=== PATIENT | male | born 1975 | race Caucasian/White ===

== ENCOUNTER 2021-04-06 23:05 | Emergency (ER) | payer OTHER ==
[2021-04-06 23:58] VITALS: BP 97/62; PULSE 78; TEMP 97.6; BMI 20.3
== END 2021-04-07 02:06 | disposition home or self-care (01) ==
LOC: JER 23:05
DX: M79.671 Pain in right foot (principal); M79.672 Pain in left foot; Z76.5 Malingerer [conscious simulation]
CPT/HCPCS: 99281-25

== ENCOUNTER 2021-04-10 01:00 | Emergency (ER) | payer OTHER ==
[2021-04-10 01:38] VITALS: TEMP 97.9; BMI 18.0
[2021-04-10] MEDS ORDERED: ACETAMINOPHEN 325 MG TABLET (FP) PO ONE (03:33)
[2021-04-10] MEDS ORDERED: ACETAMINOPHEN 325 MG TABLET (FP) ONE (03:52)
[2021-04-10 06:12] VITALS: BP 131/81; PULSE 79
== END 2021-04-10 06:57 | disposition home or self-care (01) ==
LOC: JER 01:00
DX: M79.672 Pain in left foot (principal); M79.671 Pain in right foot
CPT/HCPCS: 99283-25

== ENCOUNTER 2021-04-11 23:47 | Emergency (ER) | payer OTHER ==
[2021-04-12 00:06] VITALS: BP 146/71; PULSE 88; TEMP 97.1; BMI 17.9
[2021-04-12] MEDS ORDERED: BACITRACIN 0.9 GM PACKET ONE (05:24)
== END 2021-04-12 05:50 | disposition home or self-care (01) ==
LOC: JER 23:47
DX: S90.821A Blister (nonthermal), right foot, initial encounter (principal); S90.822A Blister (nonthermal), left foot, initial encounter; X50.3XXA Overexertion from repetitive movements, initial encounter
CPT/HCPCS: 99283-25

== ENCOUNTER 2021-04-27 21:45 | Emergency (ER) | payer OTHER ==
[2021-04-27 22:17] VITALS: BP 112/60; PULSE 74; TEMP 98.5; BMI 18.0
[2021-04-28] MEDS ORDERED: IBUPROFEN 400 MG TABLET (FP) PO ONE ×2 (00:22→00:25)
== END 2021-04-28 01:35 | disposition home or self-care (01) ==
LOC: JERFT 21:45
DX: M79.641 Pain in right hand (principal)
CPT/HCPCS: 73130-TC-RT-FY; 99283-25

== ENCOUNTER 2021-05-23 03:33 | Emergency (ER) | payer OTHER ==
[2021-05-23 03:53] VITALS: BP 128/83; PULSE 79; TEMP 98.4; BMI 20.3
[2021-05-23] MEDS ORDERED: ACETAMINOPHEN 325 MG TABLET (FP) PO ONE (04:20)
[2021-05-23] MEDS ORDERED: ACETAMINOPHEN 500 MG TABLET (FP) PO ONE (04:27)
[2021-05-23] MEDS ORDERED: ACETAMINOPHEN 325 MG TABLET (FP) ONE (04:30)
== END 2021-05-23 06:36 | disposition left against medical advice (07) ==
LOC: JER 03:33
DX: R07.9 Chest pain, unspecified (principal)
CPT/HCPCS: 93005; 93010; 99285-25

== ENCOUNTER 2021-05-24 00:55 | Emergency (ER) | payer OTHER ==
[2021-05-24 01:05] VITALS: BMI 20.3
[2021-05-24] MEDS ORDERED: ACETAMINOPHEN 325 MG TABLET (FP) PO ONE (02:08)
[2021-05-24] MEDS ORDERED: ACETAMINOPHEN 325 MG TABLET (FP) ONE (02:23)
[2021-05-24 02:45] LABS: BASO % 1.1 % (0-2.0); EOS % 4.5 % (0-4.5); HEMATOCRIT 40.2 % (35.4-49); HEMOGLOBIN 13.5 GM/dL (11.7-16.9); LYMPH % 36.2 % (8-40); MCH 31.6 pg (25.7-33.7); MCHC 33.5 g/dl (32.0-35.9); MEAN CELL VOLUME 94.3 fl (80-96); MEAN PLT VOLUME 8.4 fl (7.5-11.1); MONO % 11.1 % (3.8-10.2); NEUT % 47.1 % (42.8-82.8); PLATELET COUNT 195 10^3/uL (134-434); RBC 4.27 M/mm3 (4.00-5.60); RDW 13.8 % (11.9-15.9); WHITE BLOOD COUNT 4.9 K/mm3 (4.0-10.0)
[2021-05-24 03:19] LABS: CHLORIDE 106 mmol/L (98-107); SODIUM 139 mmol/L (136-145)
[2021-05-24 03:21] LABS: CALCIUM 9.3 mg/dL (8.5-10.1)
[2021-05-24 03:22] LABS: ANION GAP 6 MMOL/L (8-16); BLOOD UREA NITROGEN 24.6 mg/dL (7-18); CO2 27 mmol/L (21-32); GLUCOSE,RANDOM 89 mg/dL (74-106)
[2021-05-24 03:25] LABS: CREATININE 1.2 mg/dL (0.55-1.3); SGOT/AST 48 U/L (15-37); SGPT/ALT 27 U/L (13-61)
[2021-05-24 03:26] LABS: BILIRUBIN,TOTAL 0.3 mg/dL (0.2-1); TOT PROT 6.7 g/dl (6.4-8.2)
[2021-05-24 03:45] LABS: ALK PHOS 81 U/L (45-117)
[2021-05-24] MEDS ORDERED: LACTATED RINGERS SOLUTION 1000 ML INFUS.BAG IV ONE (03:50)
[2021-05-24 06:02] VITALS: BP 124/75; PULSE 73; TEMP 97.2
== END 2021-05-24 08:55 | disposition home or self-care (01) ==
LOC: JER 00:55
DX: R07.9 Chest pain, unspecified (principal); F19.10 Other psychoactive substance abuse, uncomplicated; Z59.00 Homelessness unspecified
CPT/HCPCS: 36415; 71046-TC-FY; 80053; 82550; 82553; 84484; 85025; 93005; 93010; 99285-25; C9803; U0003; U0005

== ENCOUNTER 2021-06-04 16:01 | Inpatient (IN) | payer OTHER ==
[2021-06-04 17:04] VITALS: BMI 19.4
[2021-06-04] MEDS ORDERED: MELATONIN 5 MG TABLETS PO SCH (22:00)
[2021-06-04] MEDS ORDERED: IBUPROFEN 400 MG TABLET (FP) PO PRN (22:29)
[2021-06-04] MEDS ORDERED: ACETAMINOPHEN 325 MG TABLET (FP) PO PRN (22:29)
[2021-06-04] MEDS ORDERED: guaiFENesin 200 MG/10 ML 10 ML UNIT-DOSE CUPS PO PRN (22:29)
[2021-06-04] MEDS ORDERED: MAGNESIUM HYDROX 2400MG/30ML ORAL SUSPENSION 30 ML CUP PO PRN (22:29)
[2021-06-04] MEDS ORDERED: P-EPHED 60MG/TRIPROLIDI 2.5MG TABLET PO PRN (22:29)
[2021-06-04] MEDS ORDERED: MAGNESIUM CITRATE 300 ML BOTTLE PO PRN (22:29)
[2021-06-04] MEDS ORDERED: LOPERAMIDE HCL 2 MG CAPSULE PO PRN (22:29)
[2021-06-04] MEDS ORDERED: ALBUTEROL SO4 HFA INHALER IH PRN (23:34)
[2021-06-05] MEDS: MAG HYDROX/AL HYDROX/SIMETH 30 ML UNIT-DOSE CUP PO PRN (00:41)
[2021-06-05] MEDS ORDERED: hydrOXYzine PAMOATE 25 MG CAPSULE (FP) PO PRN (09:05)
[2021-06-05] MEDS: PRENATAL VITAMINS W/ FOLIC ACID TABLET (FP) PO SCH (09:46)
[2021-06-05 10:36] LABS: HEMATOCRIT 38.1 % (35.4-49); HEMOGLOBIN 12.7 GM/dL (11.7-16.9); MCHC 33.4 g/dl (32.0-35.9); MEAN CELL VOLUME 95.8 fl (80-96); MEAN PLT VOLUME 7.9 fl (7.5-11.1); PLATELET COUNT 284 10^3/uL (134-434); RBC 3.98 M/mm3 (4.00-5.60); RDW 14.5 % (11.9-15.9); WHITE BLOOD COUNT 5.5 K/mm3 (4.0-10.0)
[2021-06-05 10:39] LABS: PH,URINE 8.5 (5.0-8.0); URINE APPEARANCE CLEAR; URINE BILIRUBIN NEGATIVE (NEGATIVE); URINE COLOR YELLOW; URINE GLUCOSE (UA) NEGATIVE (NEGATIVE); URINE KETONE NEGATIVE (NEGATIVE); URINE LEUK ESTERASE NEGATIVE (NEGATIVE); URINE NITRITE NEGATIVE (NEGATIVE); URINE PROTEIN NEGATIVE (NEGATIVE); URINE UROBILINOGEN 0.2 mg/dL (0.2-1.0)
[2021-06-05 10:47] LABS: CALCIUM 8.3 mg/dL (8.5-10.1)
[2021-06-05 10:48] LABS: ALBUMIN 3.5 g/dl (3.4-5.0)
[2021-06-05 10:52] LABS: BILIRUBIN,TOTAL 0.2 mg/dL (0.2-1)
[2021-06-05 10:53] LABS: TOT PROT 6.4 g/dl (6.4-8.2)
[2021-06-05] MEDS: QUEtiapine FUMARATE 50 MG TABLET PO SCH (21:23)
[2021-06-05] MEDS: THIAMINE HCL 100 MG TABLET (FP) PO SCH (21:23)
[2021-06-06] MEDS: PRENATAL VITAMINS W/ FOLIC ACID TABLET (FP) PO SCH (09:19)
[2021-06-06] MEDS: MAG HYDROX/AL HYDROX/SIMETH 30 ML UNIT-DOSE CUP PO PRN (17:10)
[2021-06-06] MEDS: THIAMINE HCL 100 MG TABLET (FP) PO SCH (21:04)
[2021-06-06] MEDS: QUEtiapine FUMARATE 50 MG TABLET PO SCH (21:04)
[2021-06-07 07:29] VITALS: BP 100/65; PULSE 76; TEMP 98.7
[2021-06-07] MEDS: PRENATAL VITAMINS W/ FOLIC ACID TABLET (FP) PO SCH (10:00)
[2021-06-07] MEDS: QUEtiapine FUMARATE 50 MG TABLET PO SCH (21:18)
[2021-06-07] MEDS: THIAMINE HCL 100 MG TABLET (FP) PO SCH (21:18)
== END 2021-06-08 07:54 | disposition home or self-care (01) | DRG 776 ==
LOC: YASAS 16:01 → Y3W 21:11
PROVIDERS: ADMIT Allergy & Immunology; ATTEND Allergy & Immunology
PROC: HZ2ZZZZ Detoxification Services for Substance Abuse Treatment (ICD-10-PCS; principal; 2021-06-04)
DX: F16.20 Hallucinogen dependence, uncomplicated (principal); F12.20 Cannabis dependence, uncomplicated; F17.210 Nicotine dependence, cigarettes, uncomplicated; F33.1 Major depressive disorder, recurrent, moderate; F19.282 Other psychoactive substance dependence with psychoactive substance-induced sleep disorder; F19.280 Other psychoactive substance dependence with psychoactive substance-induced anxiety disorder; F19.24 Other psychoactive substance dependence with psychoactive substance-induced mood disorder; F32.A Depression, unspecified; F90.9 Attention-deficit hyperactivity disorder, unspecified type; M17.12 Unilateral primary osteoarthritis, left knee; J45.909 Unspecified asthma, uncomplicated; Z88.0 Allergy status to penicillin; Z91.013 Allergy to seafood; Z91.02 Food additives allergy status; Z56.0 Unemployment, unspecified
CPT/HCPCS: 36415; 80053; 81003; 85027; 86780; C9803; U0003; U0005

== ENCOUNTER 2021-07-27 22:54 | Inpatient (IN) | payer OTHER ==
[2021-07-28 02:23] VITALS: BMI 19.3
[2021-07-28] MEDS ORDERED: BISMUTH SUBSALICYLATE 524 MG/30 ML PO PRN (03:02)
[2021-07-28] MEDS ORDERED: P-EPHED 60MG/TRIPROLIDI 2.5MG TABLET PO PRN (03:02)
[2021-07-28] MEDS ORDERED: MAG HYDROX/AL HYDROX/SIMETH 30 ML UNIT-DOSE CUP PO PRN (03:02)
[2021-07-28] MEDS ORDERED: ONDANSETRON *ODT* 4 MG TABLET SL PRN (03:02)
[2021-07-28] MEDS ORDERED: MAGNESIUM HYDROX 2400MG/30ML ORAL SUSPENSION 30 ML CUP PO PRN (03:02)
[2021-07-28] MEDS ORDERED: ACETAMINOPHEN 325 MG TABLET (FP) PO PRN ×2 (03:02)
[2021-07-28] MEDS ORDERED: NICOTINE POLACRILEX 2 MG GUM BUC PRN (03:02)
[2021-07-28] MEDS ORDERED: guaiFENesin 200 MG/10 ML 10 ML UNIT-DOSE CUPS PO PRN (03:02)
[2021-07-28] MEDS ORDERED: LOPERAMIDE HCL 2 MG CAPSULE PO PRN (03:02)
[2021-07-28] MEDS ORDERED: IBUPROFEN 400 MG TABLET (FP) PO PRN (03:02)
[2021-07-28] MEDS ORDERED: MAGNESIUM CITRATE 300 ML BOTTLE PO PRN (03:02)
[2021-07-28] MEDS ORDERED: MENTHOL/PHENOL 1 EACH UD MM PRN (03:02)
[2021-07-28] MEDS ORDERED: DICYCLOMINE HCL 10 MG CAPSULE PO PRN (03:02)
[2021-07-28] MEDS ORDERED: chlordiazePOXIDE HCL 25 MG CAPSULE PO PRN (09:06)
[2021-07-28] MEDS: chlordiazePOXIDE HCL 25 MG CAPSULE PO SCH ×2 (11:23→20:38)
[2021-07-28] MEDS: PRENATAL VITAMINS W/ FOLIC ACID TABLET (FP) PO SCH (11:25)
[2021-07-28] MEDS: NICOTINE 14 MG/24 HOURS TOPICAL PATCH TD SCH (11:25)
[2021-07-28 14:49] LABS: HEMATOCRIT 41.3 % (35.4-49); HEMOGLOBIN 14.3 GM/dL (11.7-16.9); MCH 32.5 pg (25.7-33.7); MCHC 34.6 g/dl (32.0-35.9); MEAN CELL VOLUME 94.2 fl (80-96); MEAN PLT VOLUME 8.4 fl (7.5-11.1); PLATELET COUNT 177 10^3/uL (134-434); RBC 4.39 M/mm3 (4.00-5.60); RDW 13.3 % (11.9-15.9); WHITE BLOOD COUNT 4.3 K/mm3 (4.0-10.0)
[2021-07-28 14:52] LABS: CALCIUM 8.8 mg/dL (8.5-10.1)
[2021-07-28 14:53] LABS: ALBUMIN 3.8 g/dl (3.4-5.0); BLOOD UREA NITROGEN 16.2 mg/dL (7-18)
[2021-07-28 14:57] LABS: TOT PROT 6.6 g/dl (6.4-8.2)
[2021-07-28 14:58] LABS: BILIRUBIN,TOTAL 0.3 mg/dL (0.2-1)
[2021-07-29] MEDS: MELATONIN 5 MG TABLETS PO SCH ×2 (00:04→22:38)
[2021-07-29] MEDS: THIAMINE HCL 100 MG TABLET (FP) PO SCH ×2 (00:04→22:36)
[2021-07-29] MEDS: QUEtiapine FUMARATE 50 MG TABLET PO SCH ×2 (00:04→22:36)
[2021-07-29] MEDS: chlordiazePOXIDE HCL 25 MG CAPSULE PO SCH ×4 (00:05→18:04)
[2021-07-29] MEDS: NICOTINE 14 MG/24 HOURS TOPICAL PATCH TD SCH (10:41)
[2021-07-29] MEDS: PRENATAL VITAMINS W/ FOLIC ACID TABLET (FP) PO SCH (10:41)
[2021-07-29] MEDS: hydrOXYzine PAMOATE 25 MG CAPSULE (FP) PO PRN ×2 (14:58→18:04)
[2021-07-30] MEDS: chlordiazePOXIDE HCL 25 MG CAPSULE PO SCH ×5 (00:05→22:27)
[2021-07-30] MEDS: NICOTINE 14 MG/24 HOURS TOPICAL PATCH TD SCH (11:14)
[2021-07-30] MEDS: METHOCARBAMOL 500 MG TABLET PO PRN ×2 (11:15→13:01)
[2021-07-30] MEDS: hydrOXYzine PAMOATE 25 MG CAPSULE (FP) PO PRN ×2 (11:15→15:46)
[2021-07-30] MEDS: PRENATAL VITAMINS W/ FOLIC ACID TABLET (FP) PO SCH (11:17)
[2021-07-30] MEDS: MELATONIN 5 MG TABLETS PO SCH (22:27)
[2021-07-30] MEDS: QUEtiapine FUMARATE 50 MG TABLET PO SCH (22:27)
[2021-07-30] MEDS: THIAMINE HCL 100 MG TABLET (FP) PO SCH (23:27)
[2021-07-31] MEDS ORDERED: chlordiazePOXIDE HCL 10 MG CAPSULE PO PRN
[2021-07-31 00:07] LABS: SARS-CoV-2 NAA Not Detected (Not Detected)
[2021-07-31] MEDS ORDERED: chlordiazePOXIDE HCL 10 MG CAPSULE PO SCH (05:00)
[2021-07-31 09:50] VITALS: BP 121/83; PULSE 94; TEMP 97.7
[2021-08-01] MEDS ORDERED: chlordiazePOXIDE HCL 10 MG CAPSULE PO SCH (05:00)
[2021-08-02] MEDS ORDERED: chlordiazePOXIDE HCL 10 MG CAPSULE PO ONE (05:00)
== END 2021-07-31 08:50 | disposition left against medical advice (07) | DRG 770 ==
LOC: YASAS 22:54 → UNDOADMIN 23:50 → Y6N 23:50
PROVIDERS: ADMIT Allergy & Immunology; ATTEND Allergy & Immunology
PROC: HZ2ZZZZ Detoxification Services for Substance Abuse Treatment (ICD-10-PCS; principal; 2021-07-27)
DX: F10.230 Alcohol dependence with withdrawal, uncomplicated (principal); F12.20 Cannabis dependence, uncomplicated; F17.210 Nicotine dependence, cigarettes, uncomplicated; F33.1 Major depressive disorder, recurrent, moderate; F19.282 Other psychoactive substance dependence with psychoactive substance-induced sleep disorder; F19.24 Other psychoactive substance dependence with psychoactive substance-induced mood disorder; J45.909 Unspecified asthma, uncomplicated; M17.12 Unilateral primary osteoarthritis, left knee; Z72.53 High risk bisexual behavior; Z91.013 Allergy to seafood; Z91.02 Food additives allergy status; Z88.0 Allergy status to penicillin; Z56.0 Unemployment, unspecified
CPT/HCPCS: 36415; 80053; 85027; 86780; 87811; C9803-CS; U0003; U0005

== ENCOUNTER 2021-08-24 23:31 | Inpatient (IN) | payer OTHER ==
[2021-08-24 23:53] VITALS: BMI 18.4
[2021-08-24] MEDS ORDERED: ONDANSETRON *ODT* 4 MG TABLET SL PRN (23:57)
[2021-08-24] MEDS ORDERED: MAG HYDROX/AL HYDROX/SIMETH 30 ML UNIT-DOSE CUP PO PRN (23:57)
[2021-08-24] MEDS ORDERED: MAGNESIUM CITRATE 300 ML BOTTLE PO PRN (23:57)
[2021-08-24] MEDS ORDERED: guaiFENesin 200 MG/10 ML 10 ML UNIT-DOSE CUPS PO PRN (23:57)
[2021-08-24] MEDS ORDERED: BISMUTH SUBSALICYLATE 524 MG/30 ML PO PRN (23:57)
[2021-08-24] MEDS ORDERED: MAGNESIUM HYDROX 2400MG/30ML ORAL SUSPENSION 30 ML CUP PO PRN (23:57)
[2021-08-24] MEDS ORDERED: LOPERAMIDE HCL 2 MG CAPSULE PO PRN (23:57)
[2021-08-24] MEDS ORDERED: BENZOCAINE/MENTHOL (CHLORASEPTIC ) LOZENGE MM PRN (23:57)
[2021-08-24] MEDS ORDERED: P-EPHED 60MG/TRIPROLIDI 2.5MG TABLET PO PRN (23:57)
[2021-08-24] MEDS ORDERED: METHOCARBAMOL 500 MG TABLET PO PRN (23:57)
[2021-08-24] MEDS ORDERED: DICYCLOMINE HCL 10 MG CAPSULE PO PRN (23:57)
[2021-08-24] MEDS ORDERED: IBUPROFEN 400 MG TABLET (FP) PO PRN (23:57)
[2021-08-24] MEDS ORDERED: ACETAMINOPHEN 325 MG TABLET (FP) PO PRN ×2 (23:57)
[2021-08-24] MEDS ORDERED: NICOTINE POLACRILEX 2 MG GUM BUC PRN (23:57)
[2021-08-25] MEDS ORDERED: diazePAM 5 MG TABLET PO PRN (09:54)
[2021-08-25] MEDS: PRENATAL VITAMINS W/ FOLIC ACID TABLET (FP) PO SCH (10:13)
[2021-08-25] MEDS: NICOTINE 14 MG/24 HOURS TOPICAL PATCH TD SCH (10:13)
[2021-08-25] MEDS: diazePAM 5 MG TABLET PO SCH ×2 (10:56→18:44)
[2021-08-25 12:46] LABS: HEMATOCRIT 39.8 % (35.4-49); HEMOGLOBIN 13.4 GM/dL (11.7-16.9); MCH 31.4 pg (25.7-33.7); MCHC 33.6 g/dl (32.0-35.9); MEAN CELL VOLUME 93.3 fl (80-96); MEAN PLT VOLUME 8.8 fl (7.5-11.1); PLATELET COUNT 293 10^3/uL (134-434); RBC 4.27 M/mm3 (4.00-5.60); RDW 12.6 % (11.9-15.9)
[2021-08-25 12:54] LABS: ALBUMIN 3.2 g/dl (3.4-5.0); BLOOD UREA NITROGEN 14.7 mg/dL (7-18)
[2021-08-25 12:56] LABS: BILIRUBIN,TOTAL 0.2 mg/dL (0.2-1); TOT PROT 6.1 g/dl (6.4-8.2)
[2021-08-25 12:57] LABS: CALCIUM 8.7 mg/dL (8.5-10.1); CREATININE 0.9 mg/dL (0.55-1.3)
[2021-08-25 14:41] LABS: PH,URINE 5.5 (5.0-8.0); URINE APPEARANCE CLEAR; URINE BILIRUBIN NEGATIVE (NEGATIVE); URINE COLOR YELLOW; URINE GLUCOSE (UA) NEGATIVE (NEGATIVE); URINE KETONE TRACE (NEGATIVE); URINE LEUK ESTERASE NEGATIVE (NEGATIVE); URINE NITRITE NEGATIVE (NEGATIVE); URINE PROTEIN NEGATIVE (NEGATIVE); URINE UROBILINOGEN 0.2 mg/dL (0.2-1.0)
[2021-08-25] MEDS: hydrOXYzine PAMOATE 25 MG CAPSULE (FP) PO PRN (18:43)
[2021-08-26] MEDS: THIAMINE HCL 100 MG TABLET (FP) PO SCH ×2 (00:07→22:18)
[2021-08-26] MEDS: diazePAM 5 MG TABLET PO SCH ×4 (00:07→22:18)
[2021-08-26] MEDS: MELATONIN 5 MG TABLETS PO SCH ×2 (00:07→22:18)
[2021-08-26] MEDS: QUEtiapine FUMARATE 50 MG TABLET PO SCH ×2 (00:07→22:18)
[2021-08-26] MEDS: PRENATAL VITAMINS W/ FOLIC ACID TABLET (FP) PO SCH (10:04)
[2021-08-26] MEDS: NICOTINE 14 MG/24 HOURS TOPICAL PATCH TD SCH (10:04)
[2021-08-26] MEDS: hydrOXYzine PAMOATE 25 MG CAPSULE (FP) PO PRN ×3 (10:05→22:18)
[2021-08-26 14:08] LABS: SARS-CoV-2 NAA Not Detected (Not Detected)
[2021-08-27] MEDS ORDERED: diazePAM 5 MG TABLET PO SCH (06:00)
[2021-08-27 06:20] VITALS: BP 101/68; PULSE 60; TEMP 97
[2021-08-27] MEDS: PRENATAL VITAMINS W/ FOLIC ACID TABLET (FP) PO SCH (09:18)
[2021-08-27] MEDS: hydrOXYzine PAMOATE 25 MG CAPSULE (FP) PO PRN (09:18)
[2021-08-27] MEDS: NICOTINE 14 MG/24 HOURS TOPICAL PATCH TD SCH (09:19)
[2021-08-28] MEDS ORDERED: diazePAM 5 MG TABLET PO ONE (06:00)
== END 2021-08-27 09:23 | disposition home or self-care (01) | DRG 775 ==
LOC: YASAS 23:31 → Y6N 08-25 01:28
PROVIDERS: ADMIT Allergy & Immunology; ATTEND Allergy & Immunology
PROC: HZ2ZZZZ Detoxification Services for Substance Abuse Treatment (ICD-10-PCS; principal; 2021-08-25)
DX: F10.230 Alcohol dependence with withdrawal, uncomplicated (principal); F12.20 Cannabis dependence, uncomplicated; F17.210 Nicotine dependence, cigarettes, uncomplicated; F19.282 Other psychoactive substance dependence with psychoactive substance-induced sleep disorder; F33.1 Major depressive disorder, recurrent, moderate; F19.24 Other psychoactive substance dependence with psychoactive substance-induced mood disorder; F90.9 Attention-deficit hyperactivity disorder, unspecified type; J45.909 Unspecified asthma, uncomplicated; K21.9 Gastro-esophageal reflux disease without esophagitis; M17.12 Unilateral primary osteoarthritis, left knee; Z88.0 Allergy status to penicillin; Z91.02 Food additives allergy status
CPT/HCPCS: 36415; 80053; 81003; 85027; 86780; C9803-CS; U0003; U0005

== ENCOUNTER 2021-09-14 21:09 | Inpatient (IN) | payer OTHER ==
[2021-09-14 21:48] VITALS: BMI 18.0
[2021-09-14] MEDS ORDERED: MAG HYDROX/AL HYDROX/SIMETH 30 ML UNIT-DOSE CUP PO PRN (21:48)
[2021-09-14] MEDS ORDERED: LOPERAMIDE HCL 2 MG CAPSULE PO PRN (21:48)
[2021-09-14] MEDS ORDERED: guaiFENesin 200 MG/10 ML 10 ML UNIT-DOSE CUPS PO PRN (21:48)
[2021-09-14] MEDS ORDERED: NICOTINE 10 MG CARTRIDGE (INHALER) IH PRN (21:48)
[2021-09-14] MEDS ORDERED: ACETAMINOPHEN 325 MG TABLET (FP) PO PRN (21:48)
[2021-09-14] MEDS ORDERED: MAGNESIUM CITRATE 300 ML BOTTLE PO PRN (21:48)
[2021-09-14] MEDS ORDERED: BENZOCAINE/MENTHOL (CHLORASEPTIC ) LOZENGE MM PRN (21:48)
[2021-09-14] MEDS ORDERED: IBUPROFEN 400 MG TABLET (FP) PO PRN (21:48)
[2021-09-14] MEDS ORDERED: P-EPHED 60MG/TRIPROLIDI 2.5MG TABLET PO PRN (21:48)
[2021-09-14] MEDS ORDERED: MAGNESIUM HYDROX 2400MG/30ML ORAL SUSPENSION 30 ML CUP PO PRN (21:48)
[2021-09-15] MEDS: THIAMINE HCL 100 MG TABLET (FP) PO SCH ×2 (05:04→21:30)
[2021-09-15] MEDS: hydrOXYzine PAMOATE 25 MG CAPSULE (FP) PO PRN ×2 (10:19→21:32)
[2021-09-15] MEDS: PRENATAL VITAMINS W/ FOLIC ACID TABLET (FP) PO SCH (10:19)
[2021-09-15] MEDS: MELATONIN 5 MG TABLETS PO PRN (21:30)
[2021-09-15] MEDS: QUEtiapine FUMARATE 25 MG TABLET PO SCH (21:31)
[2021-09-16] MEDS: PRENATAL VITAMINS W/ FOLIC ACID TABLET (FP) PO SCH (10:14)
[2021-09-16] MEDS: hydrOXYzine PAMOATE 25 MG CAPSULE (FP) PO PRN ×2 (10:22→18:25)
[2021-09-16] MEDS: THIAMINE HCL 100 MG TABLET (FP) PO SCH (23:36)
[2021-09-16] MEDS: QUEtiapine FUMARATE 25 MG TABLET PO SCH (23:36)
[2021-09-17] MEDS: PRENATAL VITAMINS W/ FOLIC ACID TABLET (FP) PO SCH (09:39)
[2021-09-17] MEDS: hydrOXYzine PAMOATE 25 MG CAPSULE (FP) PO PRN ×2 (09:39→14:48)
[2021-09-17] MEDS: QUEtiapine FUMARATE 25 MG TABLET PO SCH (21:31)
[2021-09-17] MEDS: MELATONIN 5 MG TABLETS PO PRN (21:32)
[2021-09-17] MEDS: THIAMINE HCL 100 MG TABLET (FP) PO SCH (21:32)
[2021-09-18] MEDS: PRENATAL VITAMINS W/ FOLIC ACID TABLET (FP) PO SCH (10:17)
[2021-09-18] MEDS: hydrOXYzine PAMOATE 25 MG CAPSULE (FP) PO PRN ×3 (10:18→21:42)
[2021-09-18] MEDS: MELATONIN 5 MG TABLETS PO PRN (21:42)
[2021-09-18] MEDS: QUEtiapine FUMARATE 25 MG TABLET PO SCH (21:42)
[2021-09-18] MEDS: THIAMINE HCL 100 MG TABLET (FP) PO SCH (21:42)
[2021-09-19 00:06] LABS: SARS-CoV-2 NAA Not Detected (Not Detected)
[2021-09-19] MEDS: PRENATAL VITAMINS W/ FOLIC ACID TABLET (FP) PO SCH (09:14)
[2021-09-19] MEDS: hydrOXYzine PAMOATE 25 MG CAPSULE (FP) PO PRN ×3 (14:55→21:02)
[2021-09-19] MEDS: THIAMINE HCL 100 MG TABLET (FP) PO SCH (21:01)
[2021-09-19] MEDS: MELATONIN 5 MG TABLETS PO PRN (21:02)
[2021-09-19] MEDS: QUEtiapine FUMARATE 25 MG TABLET PO SCH (21:54)
[2021-09-20] MEDS: PRENATAL VITAMINS W/ FOLIC ACID TABLET (FP) PO SCH (10:24)
[2021-09-20] MEDS: THIAMINE HCL 100 MG TABLET (FP) PO SCH (21:11)
[2021-09-20] MEDS: QUEtiapine FUMARATE 25 MG TABLET PO SCH (21:11)
[2021-09-20] MEDS: MELATONIN 5 MG TABLETS PO PRN (21:11)
[2021-09-20] MEDS: hydrOXYzine PAMOATE 25 MG CAPSULE (FP) PO PRN (21:12)
[2021-09-21 06:38] VITALS: PULSE 69
[2021-09-21] MEDS: PRENATAL VITAMINS W/ FOLIC ACID TABLET (FP) PO SCH (09:17)
[2021-09-21] MEDS: hydrOXYzine PAMOATE 25 MG CAPSULE (FP) PO PRN (19:18)
[2021-09-21] MEDS: QUEtiapine FUMARATE 25 MG TABLET PO SCH (21:24)
[2021-09-21] MEDS: THIAMINE HCL 100 MG TABLET (FP) PO SCH (21:24)
[2021-09-21] MEDS: MELATONIN 5 MG TABLETS PO PRN (21:25)
[2021-09-22 07:37] VITALS: BP 120/78; TEMP 98.1
[2021-09-22] MEDS: PRENATAL VITAMINS W/ FOLIC ACID TABLET (FP) PO SCH (09:38)
== END 2021-09-22 09:10 | disposition home or self-care (01) | DRG 772 ==
LOC: YASAS 21:09 → Y3W 21:50 → Y3E 09-18 15:22
PROVIDERS: ADMIT Allergy & Immunology; ATTEND Psychiatry & Neurology Pain Medicine
PROC: HZ42ZZZ Group Counseling for Substance Abuse Treatment, Cognitive-Behavioral (ICD-10-PCS; principal; 2021-09-14)
DX: F10.20 Alcohol dependence, uncomplicated (principal); F16.20 Hallucinogen dependence, uncomplicated; F12.20 Cannabis dependence, uncomplicated; F17.210 Nicotine dependence, cigarettes, uncomplicated; F19.24 Other psychoactive substance dependence with psychoactive substance-induced mood disorder; G47.00 Insomnia, unspecified; M17.12 Unilateral primary osteoarthritis, left knee; J45.909 Unspecified asthma, uncomplicated; Z88.0 Allergy status to penicillin; Z91.013 Allergy to seafood; Z91.02 Food additives allergy status
CPT/HCPCS: C9803-CS; U0003; U0005

== ENCOUNTER 2021-12-17 22:33 | Inpatient (IN) | payer OTHER ==
[2021-12-17 23:22] VITALS: BMI 17.2
[2021-12-18] MEDS ORDERED: MAGNESIUM CITRATE 300 ML BOTTLE PO PRN (00:27)
[2021-12-18] MEDS ORDERED: P-EPHED 60MG/TRIPROLIDI 2.5MG TABLET PO PRN (00:27)
[2021-12-18] MEDS ORDERED: NICOTINE POLACRILEX 2 MG GUM BUC PRN (00:27)
[2021-12-18] MEDS ORDERED: ACETAMINOPHEN 325 MG TABLET (FP) PO PRN (00:27)
[2021-12-18] MEDS ORDERED: MAG HYDROX/AL HYDROX/SIMETH 30 ML UNIT-DOSE CUP PO PRN (00:27)
[2021-12-18] MEDS ORDERED: LOPERAMIDE HCL 2 MG CAPSULE PO PRN (00:27)
[2021-12-18] MEDS ORDERED: guaiFENesin 200 MG/10 ML 10 ML UNIT-DOSE CUPS PO PRN (00:27)
[2021-12-18] MEDS ORDERED: MAGNESIUM HYDROX 2400MG/30ML ORAL SUSPENSION 30 ML CUP PO PRN (00:27)
[2021-12-18] MEDS ORDERED: IBUPROFEN 400 MG TABLET (FP) PO PRN (00:27)
[2021-12-18] MEDS ORDERED: MELATONIN 5 MG TABLETS PO ONE (03:45)
[2021-12-18] MEDS ORDERED: hydrOXYzine PAMOATE 25 MG CAPSULE (FP) PO ONE (03:48)
[2021-12-18 11:34] LABS: ALBUMIN 3.4 g/dl (3.4-5.0); BLOOD UREA NITROGEN 21.4 mg/dL (7-18); CALCIUM 8.4 mg/dL (8.5-10.1); HEMATOCRIT 41.4 % (35.4-49); HEMOGLOBIN 13.9 GM/dL (11.7-16.9); MCH 31.5 pg (25.7-33.7); MCHC 33.6 g/dl (32.0-35.9); MEAN CELL VOLUME 93.9 fl (80-96); MEAN PLT VOLUME 9.2 fl (7.5-11.1); PLATELET COUNT 196 10^3/uL (134-434); RBC 4.41 M/mm3 (4.00-5.60); RDW 13.5 % (11.9-15.9); WHITE BLOOD COUNT 5.6 K/mm3 (4.0-10.0)
[2021-12-18 11:37] LABS: CREATININE 0.9 mg/dL (0.55-1.3)
[2021-12-18] MEDS ORDERED: hydrOXYzine PAMOATE 25 MG CAPSULE (FP) PO PRN (11:38)
[2021-12-18 11:39] LABS: BILIRUBIN,TOTAL 0.4 mg/dL (0.2-1)
[2021-12-18] MEDS: NICOTINE 14 MG/24 HOURS TOPICAL PATCH TD SCH (11:50)
[2021-12-18] MEDS: PRENATAL VITAMINS W/ FOLIC ACID TABLET (FP) PO SCH (11:50)
[2021-12-18 12:23] LABS: PH,URINE 6.5 (5.0-8.0); URINE APPEARANCE CLEAR; URINE BILIRUBIN NEGATIVE (NEGATIVE); URINE COLOR YELLOW; URINE GLUCOSE (UA) NEGATIVE (NEGATIVE); URINE KETONE NEGATIVE (NEGATIVE); URINE LEUK ESTERASE NEGATIVE (NEGATIVE); URINE NITRITE NEGATIVE (NEGATIVE); URINE PROTEIN NEGATIVE (NEGATIVE)
[2021-12-18 12:24] LABS: SYPHILIS W/ RPR CONF NON-REACTIVE (NONREACTIVE)
[2021-12-18 13:11] LABS: HIV INTERPRETATION NEGATIVE (NEGATIVE)
[2021-12-18] MEDS: hydrOXYzine PAMOATE 25 MG CAPSULE (FP) PO PRN ×2 (16:00→21:12)
[2021-12-18] MEDS: QUEtiapine FUMARATE 50 MG TABLET PO PRN (21:12)
[2021-12-18] MEDS: THIAMINE HCL 100 MG TABLET (FP) PO SCH (21:13)
[2021-12-18] MEDS ORDERED: traZODone HCL 50 MG TABLET (FP) PO SCH (22:00)
[2021-12-19] MEDS: PRENATAL VITAMINS W/ FOLIC ACID TABLET (FP) PO SCH (09:17)
[2021-12-19] MEDS: hydrOXYzine PAMOATE 25 MG CAPSULE (FP) PO PRN ×3 (09:18→19:08)
[2021-12-19] MEDS: NICOTINE 14 MG/24 HOURS TOPICAL PATCH TD SCH (09:18)
[2021-12-19] MEDS ORDERED: ONDANSETRON 8 MG TABLET (FP) PO PRN (10:29)
[2021-12-19] MEDS ORDERED: METHOCARBAMOL 500 MG TABLET PO PRN (10:29)
[2021-12-19] MEDS: QUEtiapine FUMARATE 50 MG TABLET PO PRN (21:13)
[2021-12-19] MEDS: THIAMINE HCL 100 MG TABLET (FP) PO SCH (21:13)
[2021-12-20 06:37] VITALS: BP 104/77; PULSE 82; RESP 17; TEMP 97.1
[2021-12-20] MEDS: NICOTINE 14 MG/24 HOURS TOPICAL PATCH TD SCH (10:36)
[2021-12-20] MEDS: PRENATAL VITAMINS W/ FOLIC ACID TABLET (FP) PO SCH (10:36)
== END 2021-12-20 13:09 | disposition left against medical advice (07) | DRG 770 ==
LOC: YASAS 22:33 → Y3E 12-18 02:58 → UNDODISIN 12-20 09:33
PROVIDERS: ADMIT Allergy & Immunology; ATTEND Allergy & Immunology
PROC: HZ42ZZZ Group Counseling for Substance Abuse Treatment, Cognitive-Behavioral (ICD-10-PCS; principal; 2021-12-18)
DX: F16.20 Hallucinogen dependence, uncomplicated (principal); F12.20 Cannabis dependence, uncomplicated; F17.210 Nicotine dependence, cigarettes, uncomplicated; F19.280 Other psychoactive substance dependence with psychoactive substance-induced anxiety disorder; F19.282 Other psychoactive substance dependence with psychoactive substance-induced sleep disorder; F19.24 Other psychoactive substance dependence with psychoactive substance-induced mood disorder; F32.A Depression, unspecified; J45.909 Unspecified asthma, uncomplicated; K21.9 Gastro-esophageal reflux disease without esophagitis; M17.12 Unilateral primary osteoarthritis, left knee; Z88.0 Allergy status to penicillin; Z91.013 Allergy to seafood; Z91.02 Food additives allergy status
CPT/HCPCS: 36415; 80053; 81003; 85027; 86780; 86803; 87389; 87811; C9803-CS; U0003; U0005

== ENCOUNTER 2022-01-11 02:17 | Emergency (ER) | payer OTHER ==
[2022-01-11 02:24] VITALS: RESP 18; BMI 17.2
[2022-01-11 04:21] LABS: VENOUS BASE EXCESS -2.5 mmol/L (-2-2); VENOUS O2 SATURATION 98.9 % (70-80); VENOUS PCO2 36.7 mmHg (38-52); VENOUS PH 7.393 (7.310-7.410)
[2022-01-11 04:25] LABS: BASO % 1.9 % (0-2.0); EOS % 5.3 % (0-4.5); HEMATOCRIT 43.5 % (35.4-49); HEMOGLOBIN 15.1 GM/dL (11.7-16.9); LYMPH % 31.1 % (8-40); MCH 32.7 pg (25.7-33.7); MCHC 34.6 g/dl (32.0-35.9); MEAN CELL VOLUME 94.4 fl (80-96); MEAN PLT VOLUME 7.9 fl (7.5-11.1); NEUT % 53.7 % (42.8-82.8); PLATELET COUNT 223 10^3/uL (134-434); RBC 4.61 M/mm3 (4.00-5.60); RDW 13.1 % (11.9-15.9); WHITE BLOOD COUNT 5.4 K/mm3 (4.0-10.0)
[2022-01-11 04:43] LABS: CHLORIDE 109 mmol/L (98-107); SODIUM 140 mmol/L (136-145)
[2022-01-11 04:45] LABS: ALBUMIN 3.6 g/dl (3.4-5.0); ANION GAP 6 MMOL/L (8-16); BLOOD UREA NITROGEN 13.7 mg/dL (7-18); CALCIUM 8.6 mg/dL (8.5-10.1); CO2 25 mmol/L (21-32); GLUCOSE,RANDOM 101 mg/dL (74-106)
[2022-01-11 04:48] LABS: CREATININE 1.2 mg/dL (0.55-1.3); SGOT/AST 26 U/L (15-37); SGPT/ALT 24 U/L (13-61)
[2022-01-11 04:50] LABS: BILIRUBIN,TOTAL 0.3 mg/dL (0.2-1); TOT PROT 6.3 g/dl (6.4-8.2)
[2022-01-11 04:51] LABS: ALK PHOS 67 U/L (45-117)
[2022-01-11 10:14] VITALS: BP 92/61; PULSE 63; TEMP 97.5
== END 2022-01-11 11:23 | disposition home or self-care (01) ==
LOC: JER 02:17
DX: R51.9 Headache, unspecified (principal); Y04.0XXA Assault by unarmed brawl or fight, initial encounter
CPT/HCPCS: 36415; 70450-TC; 71045-TC-FY; 72125-TC; 80053; 80307; 82803; 84484; 85025; 93005; 93010; 99284-25; G0480

== ENCOUNTER 2022-01-26 00:31 | Inpatient (IN) | payer OTHER ==
[2022-01-26 00:52] VITALS: RESP 18; BMI 17.1
[2022-01-26] MEDS ORDERED: guaiFENesin 200 MG/10 ML 10 ML UNIT-DOSE CUPS PO PRN (01:03)
[2022-01-26] MEDS ORDERED: MAGNESIUM CITRATE 300 ML BOTTLE PO PRN (01:03)
[2022-01-26] MEDS ORDERED: hydrOXYzine PAMOATE 25 MG CAPSULE (FP) PO PRN (01:03)
[2022-01-26] MEDS ORDERED: IBUPROFEN 400 MG TABLET (FP) PO PRN (01:03)
[2022-01-26] MEDS ORDERED: NICOTINE POLACRILEX 2 MG GUM BC PRN (01:03)
[2022-01-26] MEDS ORDERED: MAGNESIUM HYDROX 2400MG/30ML ORAL SUSPENSION 30 ML CUP PO PRN (01:03)
[2022-01-26] MEDS ORDERED: ACETAMINOPHEN 325 MG TABLET (FP) PO PRN (01:03)
[2022-01-26] MEDS ORDERED: LOPERAMIDE HCL 2 MG CAPSULE PO PRN (01:03)
[2022-01-26] MEDS ORDERED: MAG HYDROX/AL HYDROX/SIMETH 30 ML UNIT-DOSE CUP PO PRN (01:03)
[2022-01-26] MEDS ORDERED: P-EPHED 60MG/TRIPROLIDI 2.5MG TABLET PO PRN (01:03)
[2022-01-26] MEDS ORDERED: MENTHOL/PHENOL 1 EACH UD MM PRN (01:09)
[2022-01-26 07:27] VITALS: BP 106/70; PULSE 92; TEMP 97.5
[2022-01-26] MEDS ORDERED: NICOTINE 14 MG/24 HOURS TOPICAL PATCH TD SCH (10:00)
[2022-01-26] MEDS: PRENATAL VITAMINS W/ FOLIC ACID TABLET (FP) PO SCH ×2 (10:51→10:54)
[2022-01-26] MEDS ORDERED: HYDROCORTISONE 2.5% TOPICAL CREAM 30 GM TUBE TP SCH (11:15)
[2022-01-26 12:27] LABS: HEMATOCRIT 39.9 % (35.4-49); HEMOGLOBIN 13.5 GM/dL (11.7-16.9); MCH 31.6 pg (25.7-33.7); MCHC 33.9 g/dl (32.0-35.9); MEAN CELL VOLUME 93.4 fl (80-96); MEAN PLT VOLUME 9.1 fl (7.5-11.1); PLATELET COUNT 226 10^3/uL (134-434); RBC 4.28 M/mm3 (4.00-5.60); WHITE BLOOD COUNT 5.5 K/mm3 (4.0-10.0)
[2022-01-26 12:48] LABS: ALBUMIN 3.6 g/dl (3.4-5.0); BLOOD UREA NITROGEN 22.5 mg/dL (7-18); CALCIUM 9.1 mg/dL (8.5-10.1)
[2022-01-26 12:50] LABS: BILIRUBIN,TOTAL 0.4 mg/dL (0.2-1); TOT PROT 6.6 g/dl (6.4-8.2)
[2022-01-26 12:54] LABS: SYPHILIS W/ RPR CONF NON-REACTIVE (NONREACTIVE)
[2022-01-26] MEDS ORDERED: QUEtiapine FUMARATE 50 MG TABLET PO SCH (22:00)
[2022-01-26] MEDS ORDERED: MELATONIN 5 MG TABLETS PO SCH (22:00)
[2022-01-26] MEDS ORDERED: THIAMINE HCL 100 MG TABLET (FP) PO SCH (22:00)
== END 2022-01-26 18:45 | disposition left against medical advice (07) | DRG 770 ==
LOC: YASAS 00:31 → Y3E 04:57
PROVIDERS: ADMIT Allergy & Immunology; ATTEND Allergy & Immunology
PROC: HZ2ZZZZ Detoxification Services for Substance Abuse Treatment (ICD-10-PCS; principal; 2022-01-26)
DX: F16.20 Hallucinogen dependence, uncomplicated (principal); F12.20 Cannabis dependence, uncomplicated; F17.210 Nicotine dependence, cigarettes, uncomplicated; F19.282 Other psychoactive substance dependence with psychoactive substance-induced sleep disorder; F19.24 Other psychoactive substance dependence with psychoactive substance-induced mood disorder; J45.20 Mild intermittent asthma, uncomplicated; K21.9 Gastro-esophageal reflux disease without esophagitis; M17.12 Unilateral primary osteoarthritis, left knee; Z88.0 Allergy status to penicillin; Z91.013 Allergy to seafood; Z91.02 Food additives allergy status
CPT/HCPCS: 36415; 80053; 85027; 86780; 86803; C9803-CS; U0003; U0005

== ENCOUNTER 2022-02-07 00:25 | Emergency (ER) | payer OTHER ==
[2022-02-07 00:55] VITALS: BP 99/55; PULSE 78; RESP 20; TEMP 98.2; BMI 24.2
== END 2022-02-07 05:31 | disposition home or self-care (01) ==
LOC: JER 00:25
DX: R52 Pain, unspecified (principal)
CPT/HCPCS: 93005; 93010; 99283-25

== ENCOUNTER 2022-02-09 01:00 | Emergency (ER) | payer OTHER ==
[2022-02-09 01:08] VITALS: BP 115/68; PULSE 93; RESP 17; TEMP 98.6; BMI 27.4
== END 2022-02-09 02:52 | disposition left against medical advice (07) ==
LOC: JER 01:00
DX: M25.562 Pain in left knee (principal); R46.89 Other symptoms and signs involving appearance and behavior
CPT/HCPCS: 93970-TC; 99283-25

== ENCOUNTER 2022-11-02 16:59 | Inpatient (IN) | payer OTHER ==
[2022-11-02 17:59] VITALS: BMI 18.6
[2022-11-02] MEDS ORDERED: guaiFENesin 600 MG TABLET.ER (FP) PO PRN (17:59)
[2022-11-02] MEDS ORDERED: IBUPROFEN 400 MG TABLET (FP) PO PRN (17:59)
[2022-11-02] MEDS ORDERED: ACETAMINOPHEN 325 MG TABLET (FP) PO PRN (17:59)
[2022-11-02] MEDS ORDERED: AMMONIUM LACTATE 12% LOTION 225 GM BOTTLE TP PRN (17:59)
[2022-11-02] MEDS ORDERED: BENZOCAINE/MENTHOL (CHLORASEPTIC ) LOZENGE MM PRN (17:59)
[2022-11-02] MEDS ORDERED: NICOTINE POLACRILEX 2 MG GUM BUC PRN (17:59)
[2022-11-02] MEDS ORDERED: COLLOIDAL OATMEAL 1 BAR EACH TP PRN (17:59)
[2022-11-02] MEDS ORDERED: POLYETHYLENE GLYCOL (HEALTHYLAX) 3350 17 GM PACKET PO PRN (17:59)
[2022-11-02] MEDS ORDERED: IBUPROFEN 600 MG TABLET (FP) PO PRN (17:59)
[2022-11-02] MEDS ORDERED: BENZONATATE 200 MG CAPSULE PO PRN (17:59)
[2022-11-02] MEDS ORDERED: P-EPHED 60MG/TRIPROLIDI 2.5MG TABLET PO PRN (17:59)
[2022-11-02] MEDS ORDERED: MAGNESIUM HYDROX 2400MG/30ML ORAL SUSPENSION 30 ML CUP PO PRN (17:59)
[2022-11-02] MEDS ORDERED: MAG HYDROX/AL HYDROX/SIMETH 30 ML UNIT-DOSE CUP PO PRN (17:59)
[2022-11-02] MEDS ORDERED: LOPERAMIDE HCL 2 MG CAPSULE PO PRN (17:59)
[2022-11-02] MEDS: LIDOCAINE PATCH REMOVAL MC SCH (21:15)
[2022-11-02] MEDS: THIAMINE HCL 100 MG TABLET (FP) PO SCH (21:15)
[2022-11-02] MEDS: MELATONIN 5 MG TABLETS PO SCH (21:15)
[2022-11-02] MEDS: ASPIRIN 81 MG CHEWABLE TABLETS PO SCH (21:16)
[2022-11-02] MEDS ORDERED: QUEtiapine FUMARATE 50 MG TABLET PO ONE (22:00)
[2022-11-03] MEDS: PRENATAL VITAMINS W/ FOLIC ACID TABLET (FP) PO SCH (09:07)
[2022-11-03] MEDS: ASPIRIN 81 MG CHEWABLE TABLETS PO SCH (09:09)
[2022-11-03] MEDS: LIDOCAINE 5% TOPICAL PATCH TP SCH (09:10)
[2022-11-03] MEDS: BENZTROPINE MESYLATE 1 MG TABLET PO PRN ×2 (10:37→16:37)
[2022-11-03 11:34] LABS: HEMATOCRIT 37.1 % (35.4-49); MCHC 32.3 g/dl (32.0-35.9); MEAN CELL VOLUME 96.2 fl (80-96); MEAN PLT VOLUME 9.1 fl (7.5-11.1); PLATELET COUNT 265 10^3/uL (134-434); RBC 3.86 M/mm3 (4.00-5.60); RDW 13.5 % (11.9-15.9); WHITE BLOOD COUNT 8.1 K/mm3 (4.0-10.0)
[2022-11-03 11:53] LABS: POTASSIUM 4.4 mmol/L (3.5-5.1)
[2022-11-03 12:01] LABS: CALCIUM 8.7 mg/dL (8.5-10.1)
[2022-11-03 12:02] LABS: ALBUMIN 3.2 g/dl (3.4-5.0); BLOOD UREA NITROGEN 11.4 mg/dL (7-18)
[2022-11-03 12:05] LABS: CREATININE 0.8 mg/dL (0.55-1.3)
[2022-11-03 12:07] LABS: BILIRUBIN,TOTAL 0.4 mg/dL (0.2-1); TOT PROT 5.9 g/dl (6.4-8.2)
[2022-11-03 12:14] LABS: SYPHILIS W/ RPR CONF NON-REACTIVE (NONREACTIVE)
[2022-11-03] MEDS: hydrOXYzine PAMOATE 25 MG CAPSULE (FP) PO PRN ×2 (12:23→20:18)
[2022-11-03] MEDS: QUEtiapine FUMARATE 50 MG TABLET PO SCH (16:37)
[2022-11-03] MEDS: traZODone HCL 50 MG TABLET (FP) PO SCH (22:52)
[2022-11-03] MEDS: LIDOCAINE PATCH REMOVAL MC SCH (22:53)
[2022-11-03] MEDS: THIAMINE HCL 100 MG TABLET (FP) PO SCH (22:53)
[2022-11-03] MEDS: MELATONIN 5 MG TABLETS PO SCH (22:53)
[2022-11-04] MEDS: hydrOXYzine PAMOATE 25 MG CAPSULE (FP) PO PRN (06:47)
[2022-11-04] MEDS: QUEtiapine FUMARATE 50 MG TABLET PO SCH (07:07)
[2022-11-04] MEDS: PRENATAL VITAMINS W/ FOLIC ACID TABLET (FP) PO SCH (10:06)
[2022-11-04] MEDS: BENZTROPINE MESYLATE 1 MG TABLET PO PRN ×2 (10:06→18:00)
[2022-11-04] MEDS: ASPIRIN 81 MG CHEWABLE TABLETS PO SCH (10:06)
[2022-11-04] MEDS: LIDOCAINE 5% TOPICAL PATCH TP SCH (10:08)
[2022-11-04] MEDS: hydrOXYzine PAMOATE 50 MG CAPSULE (FP) PO PRN (16:15)
[2022-11-04] MEDS: QUEtiapine FUMARATE 100 MG TABLET (FP) PO SCH (16:15)
[2022-11-04] MEDS: THIAMINE HCL 100 MG TABLET (FP) PO SCH (21:04)
[2022-11-04] MEDS: traZODone HCL 50 MG TABLET (FP) PO SCH (21:04)
[2022-11-04] MEDS: MELATONIN 5 MG TABLETS PO SCH (21:04)
[2022-11-04] MEDS: LIDOCAINE PATCH REMOVAL MC SCH (23:26)
[2022-11-05 07:17] VITALS: BP 113/66; PULSE 76; RESP 16; TEMP 97.3
[2022-11-05] MEDS: QUEtiapine FUMARATE 100 MG TABLET (FP) PO SCH (07:26)
[2022-11-05] MEDS: BENZTROPINE MESYLATE 1 MG TABLET PO PRN (08:00)
[2022-11-05 09:43] LABS: URINE APPEARANCE CLEAR; URINE BILIRUBIN NEGATIVE (NEGATIVE); URINE COLOR YELLOW; URINE GLUCOSE (UA) NEGATIVE (NEGATIVE); URINE KETONE NEGATIVE (NEGATIVE); URINE LEUK ESTERASE NEGATIVE (NEGATIVE); URINE NITRITE NEGATIVE (NEGATIVE); URINE PROTEIN NEGATIVE (NEGATIVE); URINE UROBILINOGEN 0.2 mg/dL (0.2-1.0)
[2022-11-05] MEDS: PRENATAL VITAMINS W/ FOLIC ACID TABLET (FP) PO SCH (09:52)
[2022-11-05] MEDS: ASPIRIN 81 MG CHEWABLE TABLETS PO SCH (09:53)
[2022-11-05] MEDS: hydrOXYzine PAMOATE 50 MG CAPSULE (FP) PO PRN (09:54)
[2022-11-05] MEDS ORDERED: LIDOCAINE 5% TOPICAL PATCH TP SCH (10:00)
[2022-11-05] MEDS ORDERED: LIDOCAINE PATCH REMOVAL MC SCH (22:00)
== END 2022-11-05 14:00 | disposition left against medical advice (07) | DRG 770 ==
LOC: YASAS 16:59 → Y5N 18:27
PROVIDERS: ADMIT Allergy & Immunology; ATTEND Psychiatry & Neurology Pain Medicine
PROC: HZ42ZZZ Group Counseling for Substance Abuse Treatment, Cognitive-Behavioral (ICD-10-PCS; principal; 2022-11-02)
DX: F16.20 Hallucinogen dependence, uncomplicated (principal); F12.20 Cannabis dependence, uncomplicated; F17.210 Nicotine dependence, cigarettes, uncomplicated; F19.282 Other psychoactive substance dependence with psychoactive substance-induced sleep disorder; G47.00 Insomnia, unspecified; J45.20 Mild intermittent asthma, uncomplicated; K21.9 Gastro-esophageal reflux disease without esophagitis; M17.12 Unilateral primary osteoarthritis, left knee; F91.8 Other conduct disorders; Z91.199 Patient's noncompliance with other medical treatment and regimen due to unspecified reason; Z88.0 Allergy status to penicillin
CPT/HCPCS: 36415; 80053; 81003; 85027; 86780; 86803; 87635; G0480

== ENCOUNTER 2022-12-14 03:44 | Emergency (ER) | payer OTHER ==
[2022-12-14 03:49] VITALS: BP 127/74; PULSE 90; RESP 18; TEMP 97.8; BMI 20.9
== END 2022-12-14 04:13 | disposition left against medical advice (07) ==
LOC: JER 03:44
DX: M25.561 Pain in right knee (principal); Z53.21 Procedure and treatment not carried out due to patient leaving prior to being seen by health care provider
CPT/HCPCS: 99281-25